=== PATIENT | male | born 1990 | race Hispanic/Latino ===

== ENCOUNTER 2017-04-13 00:10 | Emergency (ER) | payer SELFPAY ==
[~2017-04-13] VITALS: Ht 177.8 cm; Wt 111.8 kg
[~2017-04-13 00:10] MED LIST: AMOXICILLIN500 MG PO; ATARAX OR; AUGMENTIN500TAB PO; BACTRIM DS1 TAB PO; BENADRYL1 CRE EX; CEPHALEXIN500 MG OR; CIPROFLOXACN500 MG PO; HYDROCORT12 EX; KENALOG15 G1 EX; MEDDOSEPAK PO; NAPROSYN500 MG OR; NO HOME MEDS; NO MEDS; PREDNISONE20 MG OR; PROAIR HFA IN; PROVENTIL0.083 % IN; ROBITUSS11 OR; ROBITUSSIN AC10 ML PO; TRIMOX500 MG PO; U; ULTRAM50 MG OR; VENTOLIN HFA IN; ZPAK PO
[2017-04-13] MEDS ORDERED: ELOCON0.12 EX (01:37)
[2017-04-13] MEDS ORDERED: BENADRYL 50MG C50 MG PO (01:37)
[2017-04-13] MEDS ORDERED: KEFLEX500 MG PO (01:37)
[2017-04-13] MEDS ORDERED: PERCOCET 5/325M1 TAB PO (02:07)
[2017-04-13 02:19] VITALS: BP 128/77
== END 2017-04-13 02:15 | disposition home or self-care (01) | DRG 607 ==
LOC: ED 00:10
DX: L30.9 Dermatitis, unspecified (principal); I10 Essential (primary) hypertension; J45.909 Unspecified asthma, uncomplicated

== ENCOUNTER 2017-10-20 11:15 | Emergency (ER) | payer SELFPAY ==
[~2017-10-20] VITALS: Ht 177.8 cm; Wt 113.0 kg
[~2017-10-20 11:15] MED LIST changes: +BENADRYL 50MG C50 MG PO; +ELOCON0.12 EX; +KEFLEX500 MG PO; +PERCOCET 5/325M1 TAB PO
[2017-10-20 12:25] LABS: HEMATOCRIT 47.4 % (39.0-50.0); HEMOGLOBIN 15.3 g/dl (14.0-18.0); IMMATURE GRANULOCYTES 0.5 % (0.0-1.0); MEAN CORPUSCULAR HGB 28.1 pG CALC (26.0-32.0); MEAN CORPUSCULAR HGB CONC 32.3 g/L CALC (32.0-36.0); NEUT# 12.65 thou/uL (1.82-7.42); RED BLOOD COUNT 5.45 mill/uL (4.70-6.10); RED CELL DISTRI WIDTH 13.4 % (11.5-15.5)
[2017-10-20 12:40] LABS: ANION GAP 17 (6-22 (CALC)); BUN 13 mg/dL (9-20); BUN/CREATININE RATIO 14 (12-20 (CALC)); CARBON DIOXIDE 26 mmol/l (22-30); CHLORIDE 106 mmol/l (95-108); CREATININE 0.9 mg/dL (0.7-1.3); GFR > 60 ML/MIN (>=60 (CALC)); GFR FOR AFR.AMER. > 60 ML/MIN (>=60 (CALC)); SODIUM 144 mmol/l (137-146)
[2017-10-20 12:41] LABS: POTASSIUM 4.9 mmol/l (3.5-5.1)
[2017-10-20 13:00] LABS: URINE BILIRUBIN - DIPSTICK NEGATIVE (NEGATIVE); URINE BLOOD DIPSTICK NEGATIVE (NEGATIVE); URINE COLOR YELLOW; URINE GLUCOSE - DIPSTICK NEGATIVE (NEGATIVE); URINE KETONE NEGATIVE (NEGATIVE); URINE LEUK ESTERASE NEGATIVE (NEGATIVE); URINE NITRITE - DIPSTICK NEGATIVE (Negative); URINE PH 6.5 (4.5-8.0); URINE PROTEIN - DIPSTICK TRACE mg/dL (NEG-TRACE); URINE SPECIFIC GRAVITY 1.015; URINE UROBILINOGEN - DIPSTICK 0.2 E.U./dL (0.2)
[2017-10-20 13:24] LABS: URINE CLARITY CLEAR
[2017-10-20 13:39] LABS: BARBITURATES NEGATIVE (NEGATIVE); COCAINE NEGATIVE (NEGATIVE); METHADONE NEGATIVE (NEGATIVE); TETRAHYDROCANNABIONOL NEGATIVE (NEGATIVE); TRICYLIC ANTIDEPRESSANTS NEGATIVE (NEGATIVE)
[2017-10-20 13:40] LABS: OXCYCODONE POSITIVE (NEGATIVE)
[2017-10-20 14:19] VITALS: BP 111/59
== END 2017-10-20 14:25 | disposition home or self-care (01) | DRG 392 ==
LOC: ED 11:15
PROVIDERS: Family Medicine
DX: R10.32 Left lower quadrant pain (principal); M25.551 Pain in right hip; M54.5 Low back pain; R51 Headache; M25.552 Pain in left hip; V47.0XXA Car driver injured in collision with fixed or stationary object in nontraffic accident, initial encounter; Y92.414 Local residential or business street as the place of occurrence of the external cause
CPT/HCPCS: Q9967

== ENCOUNTER 2022-12-07 23:13 | Emergency (ER) | payer SELFPAY ==
[~2022-12-07] VITALS: Ht 177.8 cm; Wt 127.3 kg
[2022-12-07 23:20] VITALS: BP 129/78
[2022-12-07 23:43] LABS: BASO% 0.3 % (0-3); EOS% 3.3 % (0-8); HEMATOCRIT 48.6 % (39.0-50.0); HEMOGLOBIN 15.2 g/dl (14.0-18.0); IMMATURE GRANULOCYTES 0.3 % (0.0-5.0); LYMPH% 19.9 % (15-41); MEAN CELL VOLUME 86.8 fL CALC (80.0-100.0); MEAN CORPUSCULAR HGB 27.1 pG CALC (26.0-32.0); MEAN CORPUSCULAR HGB CONC 31.3 g/dL CAL (32.0-36.0); MONO% 7.4 % (2-13); NEUT# 11.46 thou/uL (1.82-7.42); NEUT% 68.8 % (42-76); RED BLOOD COUNT 5.6 mill/uL (4.70-6.10); RED CELL DISTRI WIDTH 13.1 % (11.5-15.5)
[2022-12-07 23:46] VITALS: BP 133/83
[2022-12-07 23:56] LABS: ALBUMIN 4.3 g/dL (3.2-5.0); ALKALINE PHOSPHATASE 67 u/l (38-126); ANION GAP 13 (6-22 (CALC)); BILIRUBIN, TOTAL 0.6 mg/dL (0.2-1.3); BUN 12 mg/dL (9-20); BUN/CREATININE RATIO 12 (12-20 (CALC)); CARBON DIOXIDE 28 mmol/l (22-30); CHLORIDE 100 mmol/l (95-108); CPK 57 u/l (55-170); GFR FOR AFR.AMER. > 60 ML/MIN (>=60 (CALC)); GFR OTHER RACES > 60 ML/MIN (>=60 (CALC)); MAGNESIUM 2.2 mg/dL (1.6-2.3); POTASSIUM 4.4 mmol/l (3.5-5.1); SODIUM 137 mmol/l (137-146); TOTAL PROTEIN 7.5 g/dL (6.3-8.2)
[2022-12-07 23:57] LABS: SGOT/AST 36 u/l (17-59)
[2022-12-07 23:57] LABS: URINE BILIRUBIN - DIPSTICK NEGATIVE (NEGATIVE); URINE BLOOD DIPSTICK NEGATIVE (NEGATIVE); URINE COLOR YELLOW; URINE GLUCOSE - DIPSTICK NEGATIVE (NEGATIVE); URINE KETONE NEGATIVE (NEGATIVE); URINE LEUK ESTERASE NEGATIVE (NEGATIVE); URINE PH 7.5 (4.5-8.0); URINE PROTEIN - DIPSTICK NEGATIVE (NEG-TRACE); URINE UROBILINOGEN - DIPSTICK 0.2 E.U./dL (0.2)
[2022-12-07 23:58] LABS: URINE NITRITE - DIPSTICK NEGATIVE (Negative)
[2022-12-08 00:01] VITALS: BP 118/74
[2022-12-08 00:16] VITALS: BP 137/77
[2022-12-08 00:26] LABS: TSH, 3RD GENERATION 0.86 uIU/mL (0.47 - 4.68)
[2022-12-08 00:31] VITALS: BP 138/74
[2022-12-08] MEDS ORDERED: MECLIZINE25 MG PO (00:45)
[2022-12-08 00:48] VITALS: BP 138/74
== END 2022-12-08 00:59 | disposition home or self-care (01) | DRG 149 ==
LOC: ED 23:13
PROVIDERS: Family Medicine
DX: R42 Dizziness and giddiness (principal); F11.10 Opioid abuse, uncomplicated

== ENCOUNTER 2022-12-19 01:12 | Emergency (ER) | payer SELFPAY ==
[~2022-12-19] VITALS: Ht 175.3 cm; Wt 127.0 kg
[~2022-12-19 01:12] MED LIST changes: +MECLIZINE25 MG PO
[2022-12-19 01:23] VITALS: BP 123/89
[2022-12-19 01:50] LABS: URINE BLOOD DIPSTICK NEGATIVE (NEGATIVE); URINE COLOR YELLOW; URINE GLUCOSE - DIPSTICK NEGATIVE (NEGATIVE); URINE KETONE NEGATIVE (NEGATIVE); URINE LEUK ESTERASE NEGATIVE (NEGATIVE); URINE PROTEIN - DIPSTICK 30 mg/dL (NEG-TRACE); URINE SPECIFIC GRAVITY >=1.030; URINE UROBILINOGEN - DIPSTICK 0.2 E.U./dL (0.2)
[2022-12-19 01:56] LABS: URINE BACTERIA FEW hpf; URINE EPITHELIAL CELLS MODERATE EPI/hpf (0-FEW); URINE MUCUS MANY hpf (NONE-FEW); URINE NITRITE - DIPSTICK NEGATIVE (Negative); URINE RBC 0-2 RBC/hpf (0-5)
[2022-12-19 02:01] VITALS: BP 135/70
[2022-12-19 02:02] LABS: BASO% 0.1 % (0-3); EOS% 1.8 % (0-8); IMMATURE GRANULOCYTES 0.8 % (0.0-5.0); LYMPH% 8.8 % (15-41); MEAN CELL VOLUME 85.6 fL CALC (80.0-100.0); MEAN CORPUSCULAR HGB 27.4 pG CALC (26.0-32.0); NEUT# 20.22 thou/uL (1.82-7.42); NEUT% 82.5 % (42-76); RED BLOOD COUNT 5.84 mill/uL (4.70-6.10); RED CELL DISTRI WIDTH 13.1 % (11.5-15.5)
[2022-12-19 02:20] LABS: ALBUMIN 4.7 g/dL (3.2-5.0); ALKALINE PHOSPHATASE 85 u/l (38-126); ANION GAP 14 (6-22 (CALC)); BILIRUBIN, TOTAL 0.4 mg/dL (0.2-1.3); BUN 14 mg/dL (9-20); BUN/CREATININE RATIO 14 (12-20 (CALC)); CARBON DIOXIDE 28 mmol/l (22-30); CHLORIDE 102 mmol/l (95-108); GFR FOR AFR.AMER. > 60 ML/MIN (>=60 (CALC)); GFR OTHER RACES > 60 ML/MIN (>=60 (CALC)); LIPASE 30 u/l (23-300); POTASSIUM 4.4 mmol/l (3.5-5.1); SGOT/AST 23 u/l (17-59); SODIUM 139 mmol/l (137-146); TOTAL PROTEIN 8.1 g/dL (6.3-8.2)
[2022-12-19 02:31] VITALS: BP 109/67
[2022-12-19 05:15] VITALS: BP 109/67
[2022-12-20 12:03] LABS: URINE BILIRUBIN - DIPSTICK NEGATIVE (NEGATIVE)
== END 2022-12-19 05:23 | disposition home or self-care (01) | DRG 392 ==
LOC: ED 01:12
PROVIDERS: Emergency Medicine
DX: K52.9 Noninfective gastroenteritis and colitis, unspecified (principal); E86.0 Dehydration; F11.10 Opioid abuse, uncomplicated; F17.200 Nicotine dependence, unspecified, uncomplicated
CPT/HCPCS: S0164